=== PATIENT | female | born 1970 | race Caucasian/White ===

== ENCOUNTER 2017-09-28 11:38 | Outpatient (CLI) ==
[2015-07-16 13:40] VITALS: BMI 27.8
--- NOTE | 2017-09-28 16:53 | MRI ---
EXAM: MRI lumbar spine without IV contrast. DATE: 09/28/2017. HISTORY: Left-sided low back pain. TECHNIQUE: Sagittal and axial T1W and T2W sequences of the lumbar spine along with sagittal IR and c oronal T2W sequences were obtained using 1.2 Marlene magnet. No IV contrast. COMPARISON: CT L-spine 17 October 2014. FINDINGS: There are five [id number] lumbar vertebra. Minor/mild leftward curvature of the lumb ar spine is present, with the apex of curvature at L4-5. No acute lumbar fracture, subluxation, or p ars interarticularis defect is demonstrated. T2W/IR bright, T1W isointense, 9.4 mm focus in the T12 body is statistically likely to be an atypical hemangioma. Disc desiccation is seen at L3-4, L4-5 an d L5-S1. Mild L3-4, minor L4-5, and mild/moderate L5-S1 disc space narrowing is detected. No acute sacral fracture or stress reaction is identified. SI joints are unremarkable. Conus medullaris term inates at L1-2. Visible spinal cord is normal. No retroperitoneal lymphadenopathy, paraspinal mass, or aortic aneurysm is demonstrated. Paraspinal musculature is symmetric bilaterally. Visible portions of the liver, spleen, and kidneys reveal no d efinitive definitive neoplasm. The adrenal glands are not adequately visualized. No bowel obstructi on or malignancy is apparent. Segmental analysis: T11-12: Normal, except for minor bilateral foraminal narrowing due to minor facet disease. T12-L1: Normal. L1-2: Normal. L2-3: Normal. L3-4: Normal. L4-5: Minor posterior to foraminal disc bulge (with left posterolateral annular fissure) and minor f acet disease cause mild right and minor left foraminal narrowing. No central canal stenosis. L5-S1: Normal, except for minor facet arthropathy. IMPRESSIONS: 1. Lumbar spine mild levoscoliosis, minor facet arthropathy, and minor DDD. 2. Mild right and minor left foraminal narrowing at L4-5. No nerve compression. 3. No lumbar spine central canal stenosis. 4. Suboptimal visualization of adrenal glands.
== END 2017-09-28 11:39 | disposition home or self-care (01) ==
LOC: RAD 11:38
PROVIDERS: ATTEND Family Medicine
DX: M54.42 Lumbago with sciatica, left side (principal); G89.29 Other chronic pain